=== PATIENT | male | born 1955 | race Caucasian/White ===

== ENCOUNTER 2017-04-29 02:50 | Emergency (ER) | payer BC ==
[2017-04-29 02:59] VITALS: BP 125/82
--- NOTE | 2017-04-29 03:13 | EDM.PDOC ---
ED HPI GENERAL MEDICAL PROBLEM - General Chief Complaint: Laceration Stated Complaint: [facility] Time Seen by Provider: 04/29/17 03:09 Source of Information: Reports: Patient, EMS History Limitations: Reports: No Limitations - History of Present Illness INITIAL COMMENTS - FREE TEXT/NARRATIVE: This patient was brought in by EMS after he fell at a local bar. He said when he got home he lifted himself in the mirror and noticed he had cuts on his for head that started bleeding all over the place so EMS was called. Right Eye Pain Score (Numeric/FACES): 2 - Related Data Allergies Allergy/AdvReac Type Severity Reaction Status Date / Time Penicillins Allergy Cannot Verified 04/29/17 02:54 Remember Home Meds: Home Meds *Cholesterol Med 04/29/17 [History] *Diabetes Med 04/29/17 [History] *High Blood Pressure Med 04/29/17 [History] Past Medical History - Past Health History Medical/Surgical History: Denies Medical/Surgical History Cardiovascular History: Reports: High Cholesterol, Hypertension Endocrine/Metabolic History: Reports: Diabetes, Type II - Infectious Disease History Infectious Disease History: Reports: Chicken Pox, Measles, Mumps, Shingles - Past Surgical History GI Surgical History: Reports: Appendectomy Musculoskeletal Surgical History: Reports: Joint Replacement, Knee Replacement Social & Family History - Tobacco Use Smoking Status *Q: Former Smoker Used Tobacco, but Quit: Yes Month Tobacco Last Used: 20 years - Caffeine Use Caffeine Use: Reports: Coffee, Soda - Alcohol Use Days Per Week of Alcohol Use: 3 Number of Drinks Per Day: 6 Total Drinks Per Week: 18 - Recreational Drug Use Recreational Drug Use: No ED ROS GENERAL - Review of Systems Review Of Systems: ROS reveals no pertinent complaints other than HPI. ED EXAM, SKIN/RASH Exam: See Below Exam Limited By: Intoxication (Appears mildly intoxicated.) General Appearance: Alert, WD/WN, No Apparent Distress Eye Exam: Bilateral Eye: EOMI, Normal Inspection, PERRL Head: Other (There is a small laceration approximately 1.5 cm to the right side of the forehead it is very superficial and a very shallow angle almost a skin tear this does not need to be sutured. There is a second laceration over the lateral margin of the right orbital rim approximately 1.5 cm long which is well approximated and does not need suturing.) Neck: Normal Inspection, Supple, Non-Tender, Full Range of Motion Respiratory/Chest: Lungs Clear Cardiovascular: Regular Rate, Rhythm Course - Vital Signs Last Recorded V/S: Last Vital Signs Temp 35.3 C 04/29/17 03:00 Pulse 68 04/29/17 03:00 Resp 20 04/29/17 03:00 BP 125/82 04/29/17 03:00 Pulse Ox 96 04/29/17 03:00 - Re-Assessments/Exams Free Text/Narrative Re-Assessment/Exam: 04/29/17 03:11 None of these facial lacerations require suturing. Once were cleansed and dressings applied. Departure - Departure Time of Disposition: 03:12 Disposition: Home, Self-Care 01 Condition: Fair Clinical Impression: Facial laceration - Discharge Information Forms: ED Department Discharge Additional Instructions: Wash these lacerations with soap and water every day. He may cover with a Band- Aid or apply some antibiotic ointment and just leave them open. they should heal without any problems. Avoid excess alcohol in the future.
== END 2017-04-29 08:31 | disposition home or self-care (01) ==
LOC: JP.ED 02:50
DX: S01.81XA Laceration without foreign body of other part of head, initial encounter (principal); E78.00 Pure hypercholesterolemia, unspecified; I10 Essential (primary) hypertension; E11.9 Type 2 diabetes mellitus without complications; Z90.49 Acquired absence of other specified parts of digestive tract; Z96.659 Presence of unspecified artificial knee joint; Z87.891 Personal history of nicotine dependence; Z88.0 Allergy status to penicillin; W19.XXXA Unspecified fall, initial encounter; Y92.838 Other recreation area as the place of occurrence of the external cause
CPT/HCPCS: 99283